=== PATIENT | female | born 1980 | race Two or more races ===

== ENCOUNTER 2016-10-24 11:18 | Inpatient (IN) | payer SELFPAY ==
[~2016-10-24] VITALS: Ht 170.2 cm; Wt 95.3 kg
--- NOTE | 2016-10-24 11:39 | PHYS DOC ---
Past Medical History Past Medical History: Migraines Past Surgical History: Other Additional Past Surgical Histo: D&C, CYST REMOVAL Alcohol Use: None Drug Use: None Adult General Chief Complaint Chief Complaint: SHORTNESS OF BREATH HPI HPI Patient is a 36 year old female who presents with with increased shortness of breath and nausea and vomiting. Patient states on she started having increased nausea and vomiting and cannot keep any food down. Patient denies any diarrhea or dysuria or abdominal pain. Patient states this morning she woke up with increasing shortness of breath and nausea and vomiting. Patient stated last night she had subjective fevers. Patient denies any chest pain. Patient has no other complaints. Pertinent exam findings: Heart was regular rate and rhythm without any murmurs Lungs are clear to auscultation bilaterally without crackles wheezes or rales Abdomen soft nontender bowel sounds are normal 4 quadrants ED course: Patient was seen and examined in the emergency room, CBC, CMP, lipase, UA, U , IV fluids, Zofran were ordered 1155: CXR NAD 1159: EKG is normal sinus rhythm rate of 63 no STEMI 1218: Repeat EKG shows normal sinus rhythm rate of 64 no STEMI, reason for the repeat was initial EKG the computer readout showing a flutter however on the repeat deftly no signs of a flutter 1230: Patient vomited the 1 g of Tylenol given by mouth therefore the patient was given 30 mg of Toradol IV 1335: On the monitor the patient is going in and out of a flutter repeat EKG shows normal sinus rhythm rate of 65 no STEMI however the rhythm strips printed before the EKG at 1327 show runs of a flutter 4:1 1345: Discussed CC/HP/PMH with Dr. Martines and recommends admit with cardiology on consult and she did not want to anticoagulate the patient at this time 1350: Explain the plan with the patient to admit for further evaluation and management Pertinent results: CBC unremarkable CMP unremarkable MDM: After reviewing the chart, CC/HPI/PMH, physical exam, [lab results], [ radiological results], the patient has paroxysmal A. fib flutter has been captured on the rhythm strip however all 3 EKGs show normal sinus rhythm. I believe the patient's intermittent a flutter is contributing to her shortness of breath and we'll make the patient for further evaluation and management with cardiology on consult. Review of Systems Review of Systems GEN: Denies fevers, chills, sweats HEENT: Denies blurred vision, sore throat CV: Denies chest pain RESP: Denies shortness of air, cough GI: pos n/v/ NEURO: Denies confusion, dizziness MSK: Denies weakness, joint pain/swelling Current Medications Current Medications Current Medications Medications (Trade) Dose Ordered Sig/Myla Start Time Stop Time Status Last Admin Dose Admin Acetaminophen (Tylenol) 1,000 mg 1X ONCE 10/24/16 12:15 10/24/16 12:16 DC 10/24/16 12:22 1,000 MG Fentanyl Citrate (Fentanyl 2ml Vial) 50 mcg 1X ONCE 10/24/16 13:30 10/24/16 13:31 DC 10/24/16 13:39 50 MCG Ketorolac Tromethamine (Toradol) 30 mg 1X ONCE 10/24/16 12:45 10/24/16 12:46 DC 10/24/16 12:41 30 MG Metoclopramide HCl (Reglan) 10 mg 1X ONCE 10/24/16 13:30 10/24/16 13:31 DC 10/24/16 13:23 10 MG Ondansetron HCl (Zofran) 4 mg 1X ONCE 10/24/16 11:45 10/24/16 11:46 DC 10/24/16 12:04 4 MG Sodium Chloride 1,000 ml @ 1,000 mls/hr 1X ONCE 10/24/16 11:45 10/24/16 12:44 DC 10/24/16 12:04 1,000 MLS/HR Allergies Allergies Allergies Coded Allergies Type Severity Reaction Last Updated Verified No Known Drug Allergies 08/14/13 No Physical Exam Physical Exam GEN.: No apparent distress. Alert and oriented. HEENT: Head is normocephalic, atraumatic NECK: Supple. LUNGS: CTAB. HEART: RRR, S1, S2 present. Peripheral pulses intact ABDOMEN: Soft, nontender. Positive bowel sounds. EXTREMITIES: Without any cyanosis. NEUROLOGIC: Normal speech, normal tone PSYCHIATRIC: Normal affect, normal mood. SKIN: No ulcerations Current Patient Data Vital Signs Vital Signs Date Time Temp Pulse Resp B/P (MAP) Pulse Ox O2 Delivery O2 Flow Rate FiO2 10/24/16 13:39 Room Air 10/24/16 13:27 80 136/83 (100) 100 10/24/16 12:57 23 10/24/16 11:30 98.2 98.2 Lab Values Laboratory Tests Test 10/24/16 10:42 10/24/16 11:25 10/24/16 12:20 POC Urine HCG, Qualitative Hcg negative (Negative) Urine Collection Type Void Urine Color Yellow Urine Clarity Cloudy Urine pH 6.0 Urine Specific [place] >=1.030 Urine Protein 30 mg/dL (NEG-TRACE) Urine Glucose (UA) Negative mg/dL (NEG) Urine Ketones (Stick) 40 mg/dL (NEG) Urine Blood Large (NEG) Urine Nitrite Negative (NEG) Urine Bilirubin Negative (NEG) Urine Urobilinogen Dipstick 0.2 mg/dL (0.2 mg/dL) Urine Leukocyte Esterase Trace (NEG) Urine RBC >40 /HPF (0-2) Urine WBC Occ /HPF (0-4) Urine Squamous Epithelial Cells Mod /LPF Urine Bacteria 0 /HPF (0-FEW) Urine Mucus Mod /LPF Urine Opiates Screen Neg (NEG) Urine Methadone Screen Neg (NEG) Urine Barbiturates Neg (NEG) Urine Phencyclidine Screen Neg (NEG) Urine Amphetamine/Methamphetamine Neg (NEG) Urine Benzodiazepines Screen Neg (NEG) Urine Cocaine Screen Neg (NEG) Urine Cannabinoids Screen Neg (NEG) Urine Ethyl Alcohol Neg (NEG) White Blood Count 10.7 x10^3/uL (4.0-11.0) Red Blood Count 3.79 x10^6/uL (3.50-5.40) Hemoglobin 12.0 g/dL (12.0-15.5) Hematocrit 34.8 % (36.0-47.0) L Mean Corpuscular Volume 92 fL (79-100) Mean Corpuscular Hemoglobin 32 pg (25-35) Mean Corpuscular Hemoglobin Concent 35 g/dL (31-37) Red Cell Distribution Width 14.8 % (11.5-14.5) H Platelet Count 353 x10^3/uL (140-400) Neutrophils (%) (Auto) 84 % (31-73) H Lymphocytes (%) (Auto) 11 % (24-48) L Monocytes (%) (Auto) 4 % (0-9) Eosinophils (%) (Auto) 0 % (0-3) Basophils (%) (Auto) 0 % (0-3) Neutrophils # (Auto) 9.0 x10^3uL (1.8-7.7) H Lymphocytes # (Auto) 1.2 x10^3/uL (1.0-4.8) Monocytes # (Auto) 0.4 x10^3/uL (0.0-1.1) Eosinophils # (Auto) 0.0 x10^3/uL (0.0-0.7) Basophils # (Auto) 0.0 x10^3/uL (0.0-0.2) Sodium Level 141 mmol/L (136-145) Potassium Level 3.5 mmol/L (3.5-5.1) Chloride Level 103 mmol/L (98-107) Carbon Dioxide Level 27 mmol/L (21-32) Anion Gap 11 (6-14) Blood Urea Nitrogen 15 mg/dL (7-20) Creatinine 0.9 mg/dL (0.6-1.0) Estimated GFR (Cockcroft-Gault) 71.7 BUN/Creatinine Ratio 17 (6-20) Glucose Level 124 mg/dL (70-99) H Calcium Level 8.9 mg/dL (8.5-10.1) Total Bilirubin 0.5 mg/dL (0.2-1.0) Aspartate Amino Transferase (AST) 14 U/L (15-37) L Alanine Aminotransferase (ALT) 13 U/L (14-59) L Alkaline Phosphatase 81 U/L (46-116) Total Protein 8.6 g/dL (6.4-8.2) H Albumin 4.2 g/dL (3.4-5.0) Albumin/Globulin Ratio 1.0 (1.0-1.7) Lipase 191 U/L (73-393) Laboratory Tests 10/24/16 12:20 Laboratory Tests 10/24/16 12:20 EKG EKG 1159: EKG is normal sinus rhythm rate of 63 no STEMI[] Radiology/Procedures Radiology/Procedures CRX: NAD[] Course & Med Decision Making Course & Med Decision Making Pertinent Labs and Imaging studies reviewed. (See chart for details) [] Dragon Disclaimer Dragon Disclaimer This electronic medical record was generated, in whole or in part, using a voice recognition dictation system. Departure Departure Impression: Primary Impression: Atrial flutter, paroxysmal Disposition: ADMITTED INPATIENT Admitting Physician: Other (Dr. Martines) Condition: STABLE Referrals: NO PCP (PCP) SOWMYA RUFFIN DO Oct 24, 2016 11:39
[2016-10-24 11:44] LABS: BILIRUBIN,URINE NEGATIVE (NEG); GLUCOSE,URINE NEGATIVE (NEG); NITRITE,URINE NEGATIVE (NEG); PROTEIN,URINE 30 mg/dL (NEG-TRACE); UROBILINOGEN,URINE 0.2 mg/dL (0.2 mg/dL)
[2016-10-24] MEDS ORDERED: ONDANSETRON PF 4 MG/2 ML VIAL. IV ONE (11:45)
[2016-10-24] MEDS ORDERED: IV NORMAL SALINE 1000ML BAG 1,000 ML IV ONE ×2 (11:45→18:15)
[2016-10-24 11:52] LABS: SQUAMOUS EPITHELIAL CELL,UR MOD /LPF
[2016-10-24 11:53] LABS: BACTERIA,URINE 0 /HPF (0-FEW); RBC,URINE >40 /HPF (0-2); WBC,URINE OCC /HPF (0-4)
[2016-10-24] MEDS ORDERED: ACETAMINOPHEN 500 MG TABLET PO ONE (12:15)
[2016-10-24 12:39] LABS: BASO % 0 % (0-3); EOS % 0 % (0-3); HEMATOCRIT 34.8 % (36.0-47.0); LYMPH # 1.2 x10^3/uL (1.0-4.8); LYMPH % 11 % (24-48); MEAN CORPUSCULAR HEMOGLOBIN 32 pg (25-35); MEAN CORPUSCULAR HGB CONC 35 g/dL (31-37); MEAN CORPUSCULAR VOLUME 92 fL (79-100); MONO % 4 % (0-9); NEUT % 84 % (31-73); PLATELET COUNT 353 x10^3/uL (140-400); RED BLOOD COUNT 3.79 x10^6/uL (3.50-5.40); RED CELL DISTRIBUTION WIDTH 14.8 % (11.5-14.5); WHITE BLOOD COUNT 10.7 x10^3/uL (4.0-11.0)
[2016-10-24] MEDS ORDERED: KETOROLAC TROMETHAMINE 30 MG/ML INJ. IV ONE (12:45)
[2016-10-24 12:48] LABS: CALCIUM 8.9 mg/dL (8.5-10.1); CREATININE 0.9 mg/dL (0.6-1.0); GFR 71.7; POTASSIUM 3.5 mmol/L (3.5-5.1)
[2016-10-24 12:54] LABS: ALBUMIN 4.2 g/dL (3.4-5.0); TOTAL BILIRUBIN 0.5 mg/dL (0.2-1.0); TOTAL PROTEIN 8.6 g/dL (6.4-8.2)
[2016-10-24] MEDS ORDERED: METOCLOPRAMIDE HCL 10 MG/2 ML VIAL. IV ONE (13:30)
[2016-10-24] MEDS ORDERED: fentaNYL PF VIAL 100 MCG/2 ML VIAL IV ONE (13:30)
[2016-10-24 13:45] LABS: BARBITURATES NEG (NEG); BENZODIAZEPINES NEG (NEG); CANNABINOIDS NEG (NEG); COCAINE NEG (NEG); METHADONE NEG (NEG); OPIATES NEG (NEG); PHENCYCLIDINE NEG (NEG)
[2016-10-24] MEDS ORDERED: MORPHINE SULFATE 4 MG/ML DISP.SYRIN. IV PRN (14:00)
[2016-10-24] MEDS ORDERED: ONDANSETRON PF 4 MG/2 ML VIAL. IV PRN (14:00)
[2016-10-24 14:55] VITALS: BP 133/78
[2016-10-24 15:01] VITALS: BP 132/73
[2016-10-24] MEDS ORDERED: ASPI1TAB30 PO (15:34)
[2016-10-24] MEDS ORDERED: IBUPROFEN 400 MG TABLET. PO PRN (18:00)
--- NOTE | 2016-10-24 18:17 | PDOC1 ---
History and Physical Date of Admission Date of Admission DATE: 10/24/16 TIME: 17:57 Identification/Chief Complaint Chief Complaint N/V/myalgias PAfib/flutter Problems: History of Present Illness History of Present Illness Mrs Peguero is a 36 y/o woman who presented with nausea/vomiting/ diarrhea and myalgias that started yesterday. Her GI symptoms have largely resolved, but myalgias/arthralgias are persistent. She denies chills, but endorses subjective fever last night. Has a mild headache, which is not unusual for her, takes Excedrin at home. This morning, she awoke with chest heaviness and difficulty breathing and she decided to present to the ER. Ther, initial EKG was normal, but a brief episode of afib/flutter was captured on tele. She is therefore admitted for cardiac evaluation to the [facility] Past Medical History Past Medical History denies any medical issues Past Surgical History Past Surgical History: No pertinent history Family History Family History DM. CAD in maternal grandmother Social History Smoke: No ALCOHOL: occassional Drugs: None Current Problem List Problem List Problems Medical Problems: (1) Atrial flutter, paroxysmal Status: Acute Problems: Current Medications Current Medications Current Medications Sodium Chloride 1,000 ml @ 1,000 mls/hr 1X ONCE IV Last administered on 12:04; Start 10/24/16 at 11:45; Stop 10/24/16 at 12:44; Status DC Ondansetron HCl (Zofran) 4 mg 1X ONCE IV Last administered on 10/24/16 12:04; Start 10/24/16 at 11:45; Stop 10/24/16 at 11:46; Status DC Acetaminophen (Tylenol) 1,000 mg 1X ONCE PO Last administered on 10/24/16 12: 22; Start 10/24/16 at 12:15; Stop 10/24/16 at 12:16; Status DC Ketorolac Tromethamine (Toradol) 30 mg 1X ONCE IV Last administered on 12:41; Start 10/24/16 at 12:45; Stop 10/24/16 at 12:46; Status DC Metoclopramide HCl (Reglan) 10 mg 1X ONCE IV Last administered on 10/24/16 13: 23; Start 10/24/16 at 13:30; Stop 10/24/16 at 13:31; Status DC Fentanyl Citrate (Fentanyl 2ml Vial) 50 mcg 1X ONCE IV Last administered on 13:39; Start 10/24/16 at 13:30; Stop 10/24/16 at 13:31; Status DC Ondansetron HCl (Zofran) 4 mg PRN Q8HRS PRN IV NAUSEA/VOMITING; Start 10/24/16 at 14:00; Stop 10/25/16 at 13:59 Morphine Sulfate 4 mg PRN Q2HR PRN IV PAIN Last administered on 10/24/16 16:17 ; Start 10/24/16 at 14:00; Stop 10/24/16 at 17:54; Status DC Oxycodone/ Acetaminophen (Percocet 5/325) 1 tab PRN Q4HRS PRN PO PAIN; Start at 18:00; Status UNV Active Scripts Active Reported Excedrin Migraine Caplet (Aspirin/Acetaminophen/Caffeine) 1 Each Tablet 1 Each PO PRN PRN Allergies Allergies: Coded Allergies: No Known Drug Allergies (Unverified , 08/14/13) ROS Review of System positive as per HPI. She denies any problems in rest of ROS Physical Exam General: Alert, Oriented X3, Cooperative, No acute distress HEENT: Atraumatic, EOMI, Mucous membr. moist/pink Heart: RRR, no murmurs Abdomen: Normal bowel sounds, Soft, No tenderness, Other (obese) Extremities: No clubbing, No cyanosis, No edema Neuro: Normal speech, Normal tone Psych/Mental Status: Mental status NL Vitals Vitals Vital Signs Date Time Temp Pulse Resp B/P (MAP) Pulse Ox O2 Delivery O2 Flow Rate FiO2 10/24/16 17:10 96 Room Air 10/24/16 14:55 97.7 75 20 133/78 (96) 97.7 Labs Labs Laboratory Tests Test 10/24/16 10:42 10/24/16 11:25 10/24/16 12:20 Bedside Urine HCG, Qualitative Hcg negative (Negative) Urine Collection Type Void Urine Color Yellow Urine Clarity Cloudy Urine pH 6.0 Urine Specific [place] >=1.030 Urine Protein 30 mg/dL (NEG-TRACE) Urine Glucose (UA) Negative mg/dL (NEG) Urine Ketones (Stick) 40 mg/dL (NEG) Urine Blood Large (NEG) Urine Nitrite Negative (NEG) Urine Bilirubin Negative (NEG) Urine Urobilinogen Dipstick 0.2 mg/dL (0.2 mg/dL) Urine Leukocyte Esterase Trace (NEG) Urine RBC >40 /HPF (0-2) Urine WBC Occ /HPF (0-4) Urine Squamous Epithelial Cells Mod /LPF Urine Bacteria 0 /HPF (0-FEW) Urine Mucus Mod /LPF Urine Opiates Screen Neg (NEG) Urine Methadone Screen Neg (NEG) Urine Barbiturates Neg (NEG) Urine Phencyclidine Screen Neg (NEG) Urine Amphetamine/Methamphetamine Neg (NEG) Urine Benzodiazepines Screen Neg (NEG) Urine Cocaine Screen Neg (NEG) Urine Cannabinoids Screen Neg (NEG) Urine Ethyl Alcohol Neg (NEG) White Blood Count 10.7 x10^3/uL (4.0-11.0) Red Blood Count 3.79 x10^6/uL (3.50-5.40) Hemoglobin 12.0 g/dL (12.0-15.5) Hematocrit 34.8 % (36.0-47.0) Mean Corpuscular Volume 92 fL (79-100) Mean Corpuscular Hemoglobin 32 pg (25-35) Mean Corpuscular Hemoglobin Concent 35 g/dL (31-37) Red Cell Distribution Width 14.8 % (11.5-14.5) Platelet Count 353 x10^3/uL (140-400) Neutrophils (%) (Auto) 84 % (31-73) Lymphocytes (%) (Auto) 11 % (24-48) Monocytes (%) (Auto) 4 % (0-9) Eosinophils (%) (Auto) 0 % (0-3) Basophils (%) (Auto) 0 % (0-3) Neutrophils # (Auto) 9.0 x10^3uL (1.8-7.7) Lymphocytes # (Auto) 1.2 x10^3/uL (1.0-4.8) Monocytes # (Auto) 0.4 x10^3/uL (0.0-1.1) Eosinophils # (Auto) 0.0 x10^3/uL (0.0-0.7) Basophils # (Auto) 0.0 x10^3/uL (0.0-0.2) Sodium Level 141 mmol/L (136-145) Potassium Level 3.5 mmol/L (3.5-5.1) Chloride Level 103 mmol/L (98-107) Carbon Dioxide Level 27 mmol/L (21-32) Anion Gap 11 (6-14) Blood Urea Nitrogen 15 mg/dL (7-20) Creatinine 0.9 mg/dL (0.6-1.0) Estimated GFR (Cockcroft-Gault) 71.7 BUN/Creatinine Ratio 17 (6-20) Glucose Level 124 mg/dL (70-99) Calcium Level 8.9 mg/dL (8.5-10.1) Total Bilirubin 0.5 mg/dL (0.2-1.0) Aspartate Amino Transf (AST/SGOT) 14 U/L (15-37) Alanine Aminotransferase (ALT/SGPT) 13 U/L (14-59) Alkaline Phosphatase 81 U/L (46-116) Troponin I Quantitative < 0.017 ng/mL (0.000-0.055) Total Protein 8.6 g/dL (6.4-8.2) Albumin 4.2 g/dL (3.4-5.0) Albumin/Globulin Ratio 1.0 (1.0-1.7) Lipase 191 U/L (73-393) Laboratory Tests Test 10/24/16 10:42 10/24/16 11:25 10/24/16 12:20 Bedside Urine HCG, Qualitative Hcg negative (Negative) Urine Collection Type Void Urine Color Yellow Urine Clarity Cloudy Urine pH 6.0 Urine Specific [place] >=1.030 Urine Protein 30 mg/dL (NEG-TRACE) Urine Glucose (UA) Negative mg/dL (NEG) Urine Ketones (Stick) 40 mg/dL (NEG) Urine Blood Large (NEG) Urine Nitrite Negative (NEG) Urine Bilirubin Negative (NEG) Urine Urobilinogen Dipstick 0.2 mg/dL (0.2 mg/dL) Urine Leukocyte Esterase Trace (NEG) Urine RBC >40 /HPF (0-2) Urine WBC Occ /HPF (0-4) Urine Squamous Epithelial Cells Mod /LPF Urine Bacteria 0 /HPF (0-FEW) Urine Mucus Mod /LPF Urine Opiates Screen Neg (NEG) Urine Methadone Screen Neg (NEG) Urine Barbiturates Neg (NEG) Urine Phencyclidine Screen Neg (NEG) Urine Amphetamine/Methamphetamine Neg (NEG) Urine Benzodiazepines Screen Neg (NEG) Urine Cocaine Screen Neg (NEG) Urine Cannabinoids Screen Neg (NEG) Urine Ethyl Alcohol Neg (NEG) White Blood Count 10.7 x10^3/uL (4.0-11.0) Red Blood Count 3.79 x10^6/uL (3.50-5.40) Hemoglobin 12.0 g/dL (12.0-15.5) Hematocrit 34.8 % (36.0-47.0) Mean Corpuscular Volume 92 fL (79-100) Mean Corpuscular Hemoglobin 32 pg (25-35) Mean Corpuscular Hemoglobin Concent 35 g/dL (31-37) Red Cell Distribution Width 14.8 % (11.5-14.5) Platelet Count 353 x10^3/uL (140-400) Neutrophils (%) (Auto) 84 % (31-73) Lymphocytes (%) (Auto) 11 % (24-48) Monocytes (%) (Auto) 4 % (0-9) Eosinophils (%) (Auto) 0 % (0-3) Basophils (%) (Auto) 0 % (0-3) Neutrophils # (Auto) 9.0 x10^3uL (1.8-7.7) Lymphocytes # (Auto) 1.2 x10^3/uL (1.0-4.8) Monocytes # (Auto) 0.4 x10^3/uL (0.0-1.1) Eosinophils # (Auto) 0.0 x10^3/uL (0.0-0.7) Basophils # (Auto) 0.0 x10^3/uL (0.0-0.2) Sodium Level 141 mmol/L (136-145) Potassium Level 3.5 mmol/L (3.5-5.1) Chloride Level 103 mmol/L (98-107) Carbon Dioxide Level 27 mmol/L (21-32) Anion Gap 11 (6-14) Blood Urea Nitrogen 15 mg/dL (7-20) Creatinine 0.9 mg/dL (0.6-1.0) Estimated GFR (Cockcroft-Gault) 71.7 BUN/Creatinine Ratio 17 (6-20) Glucose Level 124 mg/dL (70-99) Calcium Level 8.9 mg/dL (8.5-10.1) Total Bilirubin 0.5 mg/dL (0.2-1.0) Aspartate Amino Transf (AST/SGOT) 14 U/L (15-37) Alanine Aminotransferase (ALT/SGPT) 13 U/L (14-59) Alkaline Phosphatase 81 U/L (46-116) Troponin I Quantitative < 0.017 ng/mL (0.000-0.055) Total Protein 8.6 g/dL (6.4-8.2) Albumin 4.2 g/dL (3.4-5.0) Albumin/Globulin Ratio 1.0 (1.0-1.7) Lipase 191 U/L (73-393) VTE Prophylaxis Ordered VTE Prophylaxis Devices: No VTE Pharmacological Prophylaxi: Yes Assessment/Plan Assessment/Plan Mrs Peguero is 36 y/o woman without medical problems, who presented with what appears to be viral syndrome and paroxysmal Afib/Aflutter. She is currently in NSR and is asymptomatic from cardiorespiratory standpoint. cardiology has been consulted. Obtain serial enzymes, tele to rule out ACS. With N/V and diarrhea, suspect she has significant dehydration. Symptoms acutally have much abated already. will administer another bolus NS, then start maintenance fluid with potassium. Monitor BMP. She has antiemeticas IV available PRN. For arthralgias/myalgias, IV morphine 4mg q2h is quite inappropriate. discussed with her that NSAIDs are the best choice. she can alternate, while in the hospital, with percocet if needed For prophylaxis, she will be started on H2 gonzalo and lovenox. SOLO CONDON MD Oct 24, 2016 18:17
[2016-10-24 19:06] VITALS: BP 137/90
[2016-10-24] MEDS: oxyCODONE/APAP 5/325 1 TAB TABLET PO PRN ×2 (19:14→23:08)
[2016-10-24] MEDS: POTASSIUM CHLORIDE 30 MEQ in IV 1/2 NORMAL SALINE 1,000 ML IV SCH (21:06)
[2016-10-24 23:08] VITALS: BP 113/70
--- NOTE | 2016-10-25 02:56 | ACF ---
Admission Forms Criteria CARDIAC ARRHYTHMIA Clinical Indications for Inpatient Care (Place 'X' for any and all applicable criteria): Ongoing inpatient care for cardiac arrhythmia needed as indicated by ANY ONE of the following(1)(2)(3)(4)(7) : [X]I. Vital sign abnormality secondary to arrhythmia [ ]II. Patient has implantable cardioverter-defibrillator that has fired more than once within past 24 hours or needs immediate adjustment of settings that cannot be done other than in inpatient setting. [ ]III. Altered mental status [ ]IV. Resuscitated or aborted ventricular fibrillation or ventricular tachycardia in patient without implantable cardioverter- defibrillator [ ]V. Initiation of antiarrhythmic drug therapy is needed in patient at high risk of adverse effects as indicated by ANY ONE of the following: [ ]a) Significant structural heart disease (e.g., reduced ejection fraction, congenital heart disease, valvular heart disease) [ ]b) Prolonged QT interval [ ]c) Underlying sinus node or atrioventricular conduction disturbances [ ]d) Need for treatment with antiarrhythmic drugs that have significant proarrhythmic potential (e.g., dofetilide, sotalol, procainamide) [ ]. Acute myocardial ischemia as a consequence or suspected cause of arrhythmia [ ]VII. Syncope secondary to arrhythmia [ ]VIII. Heart failure (eg, pulmonary edema) secondary to arrhythmia) (26)(27) [ ]IX. Patient has implantable cardioverter defibrillator that has fired more than once within past 24hr or needs immediate adjustment of settings that cannot be done other than in inpatient setting.(8) [ ]X. Sustained (30 seconds or more of ventricular rhythm at more than 100 beats per minute) ventricular tachycardia and ANY ONE of the following: [ ]a) No previous known history of sustained ventricular tachycardia [ ]b) Structural heart disease (eg, reduced ejection fraction, hypertrophic cardiomyopathy, severe valvular disease) and without implantable cardioverter-defibrillator(24)(32)(33) [ ]c) Need for treatment of drug toxicity (eg, digitalis toxicity)(34 ) [ ]d) Need for electrical cardioversion Extended stay beyond goal length of stay may be needed for [ ]a) Hemodynamic stability [ ]b) Arrhythmia evaluation completed [ ]c) Reversible causes of arrhythmia eliminated or mitigated [ ]d) Specific antiarrhythmia treatment initiated as appropriate [ ]e) Anticoagulation requirements addressed (or anticoagulation not required). [ ]f) Medical comorbidities manageable at lower level of care The original [facility] content [facility] by [facility] has been revised. The portions of the content which have been revised are identified through the use of italic text or in bold, and [facility] has neither reviewed nor approved the modified material. All other unmodified content is copyright [facility]. Please see references footnoted in the original [facility] edition 2016 Admission Criteria Met?: Yes ORLY TAPIA Oct 25, 2016 02:55
[2016-10-25 03:16] VITALS: BP 132/57
[2016-10-25] MEDS: oxyCODONE/APAP 5/325 1 TAB TABLET PO PRN ×2 (03:16→08:29)
[2016-10-25 05:57] LABS: BASO # 0.1 x10^3/uL (0.0-0.2); BASO % 0 % (0-3); EOS % 0 % (0-3); HEMATOCRIT 30.8 % (36.0-47.0); HEMOGLOBIN 10.4 g/dL (12.0-15.5); LYMPH # 2.1 x10^3/uL (1.0-4.8); LYMPH % 12 % (24-48); MEAN CORPUSCULAR HEMOGLOBIN 31 pg (25-35); MEAN CORPUSCULAR HGB CONC 34 g/dL (31-37); MEAN CORPUSCULAR VOLUME 93 fL (79-100); MONO % 5 % (0-9); NEUT % 83 % (31-73); PLATELET COUNT 325 x10^3/uL (140-400); RED BLOOD COUNT 3.31 x10^6/uL (3.50-5.40); RED CELL DISTRIBUTION WIDTH 14.7 % (11.5-14.5); WHITE BLOOD COUNT 18.2 x10^3/uL (4.0-11.0)
[2016-10-25 06:05] LABS: CALCIUM 8.1 mg/dL (8.5-10.1); CREATININE 0.9 mg/dL (0.6-1.0); GFR 71.7
[2016-10-25 06:06] LABS: POTASSIUM 2.9 mmol/L (3.5-5.1)
[2016-10-25] MEDS ORDERED: POTASSIUM CHLORIDE 20 MEQ TABLET.ER. PO ONE ×3 (06:30→12:00)
[2016-10-25 07:00] VITALS: BP 116/93
--- NOTE | 2016-10-25 08:15 | RAD ---
Chest, 2 views, 10/24/2016: History: Shortness of breath Comparison is made to a study from 09/02/2010. The heart size and pulmonary vascularity are normal. There is a calcified lymph node in the right paratracheal region. No pulmonary infiltrates are seen. There is no evidence of pleural fluid. IMPRESSION: No acute cardiopulmonary abnormality is detected.
--- NOTE | 2016-10-25 08:25 | EKG ---
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
--- NOTE | 2016-10-25 08:26 | EKG ---
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
--- NOTE | 2016-10-25 08:26 | EKG ---
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
[2016-10-25] MEDS: POTASSIUM CHLORIDE 30 MEQ in IV 1/2 NORMAL SALINE 1,000 ML IV SCH (08:28)
[2016-10-25 09:43] LABS: PLT ESTIMATE ADEQUATE (ADEQUATE)
[2016-10-25 11:00] VITALS: BP 104/75
--- NOTE | 2016-10-25 13:31 | PDOC2 ---
CONSULT Date of Consult Date of Consult DATE: 10/25/16 TIME: 13:26 Reason for Consult Reason for Consult: parox. atrial flutter- Referring Physician Referring Physician: Dr. Martines Identification/Chief Complaint Chief Complaint nausea and vomiting Problems: Source Source: Patient History of Present Illness Reason for Visit: The patient is a 36-year-old female who was admitted last evening due to episodes of shortness of breath as well as nausea and vomiting. Patient has been treated with antiemetics and fluids overnight and is feeling much better. She denies any chest pain or lightheadedness. Her monitor overnight and is shown a sinus rhythm but she did have brief episodes of paroxysmal atrial flutter on monitoring in the emergency room. Chest x-ray is clear. Troponin is negative 3. Potassium was significantly decreased on admission at 2.9 but now has been replaced to 4.2. Past Medical History Cardiovascular: HTN GI: GERD Past Surgical History Past Surgical History: No pertinent history Family History Family History: Hypertension Social History No ALCOHOL: occassional Drugs: None Current Problem List Problem List Problems Medical Problems: (1) Atrial flutter, paroxysmal Status: Acute Current Medications Current Medications Current Medications Sodium Chloride 1,000 ml @ 1,000 mls/hr 1X ONCE IV Last administered on 12:04; Start 10/24/16 at 11:45; Stop 10/24/16 at 12:44; Status DC Ondansetron HCl (Zofran) 4 mg 1X ONCE IV Last administered on 10/24/16 12:04; Start 10/24/16 at 11:45; Stop 10/24/16 at 11:46; Status DC Acetaminophen (Tylenol) 1,000 mg 1X ONCE PO Last administered on 10/24/16 12: 22; Start 10/24/16 at 12:15; Stop 10/24/16 at 12:16; Status DC Ketorolac Tromethamine (Toradol) 30 mg 1X ONCE IV Last administered on 12:41; Start 10/24/16 at 12:45; Stop 10/24/16 at 12:46; Status DC Metoclopramide HCl (Reglan) 10 mg 1X ONCE IV Last administered on 10/24/16 13: 23; Start 10/24/16 at 13:30; Stop 10/24/16 at 13:31; Status DC Fentanyl Citrate (Fentanyl 2ml Vial) 50 mcg 1X ONCE IV Last administered on 13:39; Start 10/24/16 at 13:30; Stop 10/24/16 at 13:31; Status DC Ondansetron HCl (Zofran) 4 mg PRN Q8HRS PRN IV NAUSEA/VOMITING; Start 10/24/16 at 14:00; Stop 10/25/16 at 13:59 Morphine Sulfate 4 mg PRN Q2HR PRN IV PAIN Last administered on 10/24/16 16:17 ; Start 10/24/16 at 14:00; Stop 10/24/16 at 17:54; Status DC Oxycodone/ Acetaminophen (Percocet 5/325) 1 tab PRN Q4HRS PRN PO PAIN Last administered on 10/25/16 08:29; Start 10/24/16 at 18:00 Ibuprofen (Motrin) 400 mg PRN Q6HRS PRN PO INFLAMMATION Last administered on 21:12; Start 10/24/16 at 18:00 Sodium Chloride 1,000 ml @ 1,000 mls/hr 1X ONCE IV Last administered on 19:14; Start 10/24/16 at 18:15; Stop 10/24/16 at 19:14; Status DC Potassium Chloride 30 meq/ Sodium Chloride 1,015 ml @ 75 mls/hr [id number] IV Last administered on 10/25/16 08:28; Start 10/24/16 at 19:00 Potassium Chloride (Klor-Con) 40 meq 1X ONCE PO Last administered on 10/25/16 06:34; Start 10/25/16 at 06:30; Stop 10/25/16 at 06:31; Status DC Potassium Chloride (Klor-Con) 40 meq 1X ONCE PO Last administered on 10/25/16 08:28; Start 10/25/16 at 08:00; Stop 10/25/16 at 08:01; Status DC Potassium Chloride (Klor-Con) 40 meq 1X ONCE PO ; Start 10/25/16 at 12:00; Stop 10/25/16 at 12:01; Status DC Active Scripts Active Reported Excedrin Migraine Caplet (Aspirin/Acetaminophen/Caffeine) 1 Each Tablet 1 Each PO PRN PRN Allergies Allergies: Coded Allergies: No Known Drug Allergies (Unverified , 08/14/13) ROS General: YES: Fatigue Gastrointestinal: Yes Nausea, Yes Vomiting Neurological: Yes Headaches Physical Exam General: No acute distress HEENT: Atraumatic Lungs: Clear to auscultation Heart: Regular rate Abdomen: Normal bowel sounds Extremities: No clubbing Vitals VITALS Vital Signs Date Time Temp Pulse Resp B/P (MAP) Pulse Ox O2 Delivery O2 Flow Rate FiO2 10/25/16 11:00 98.4 58 18 104/75 (85) 98 Room Air 98.4 Labs Labs Laboratory Tests Test 10/24/16 10:42 10/24/16 11:25 10/24/16 12:20 10/24/16 20:00 Bedside Urine HCG, Qualitative Hcg negative (Negative) Urine Collection Type Void Urine Color Yellow Urine Clarity Cloudy Urine pH 6.0 Urine Specific [place] >=1.030 Urine Protein 30 mg/dL (NEG-TRACE) Urine Glucose (UA) Negative mg/dL (NEG) Urine Ketones (Stick) 40 mg/dL (NEG) Urine Blood Large (NEG) Urine Nitrite Negative (NEG) Urine Bilirubin Negative (NEG) Urine Urobilinogen Dipstick 0.2 mg/dL (0.2 mg/dL) Urine Leukocyte Esterase Trace (NEG) Urine RBC >40 /HPF (0-2) Urine WBC Occ /HPF (0-4) Urine Squamous Epithelial Cells Mod /LPF Urine Bacteria 0 /HPF (0-FEW) Urine Mucus Mod /LPF Urine Opiates Screen Neg (NEG) Urine Methadone Screen Neg (NEG) Urine Barbiturates Neg (NEG) Urine Phencyclidine Screen Neg (NEG) Urine Amphetamine/Methamphetamine Neg (NEG) Urine Benzodiazepines Screen Neg (NEG) Urine Cocaine Screen Neg (NEG) Urine Cannabinoids Screen Neg (NEG) Urine Ethyl Alcohol Neg (NEG) White Blood Count 10.7 x10^3/uL (4.0-11.0) Red Blood Count 3.79 x10^6/uL (3.50-5.40) Hemoglobin 12.0 g/dL (12.0-15.5) Hematocrit 34.8 % (36.0-47.0) Mean Corpuscular Volume 92 fL (79-100) Mean Corpuscular Hemoglobin 32 pg (25-35) Mean Corpuscular Hemoglobin Concent 35 g/dL (31-37) Red Cell Distribution Width 14.8 % (11.5-14.5) Platelet Count 353 x10^3/uL (140-400) Neutrophils (%) (Auto) 84 % (31-73) Lymphocytes (%) (Auto) 11 % (24-48) Monocytes (%) (Auto) 4 % (0-9) Eosinophils (%) (Auto) 0 % (0-3) Basophils (%) (Auto) 0 % (0-3) Neutrophils # (Auto) 9.0 x10^3uL (1.8-7.7) Lymphocytes # (Auto) 1.2 x10^3/uL (1.0-4.8) Monocytes # (Auto) 0.4 x10^3/uL (0.0-1.1) Eosinophils # (Auto) 0.0 x10^3/uL (0.0-0.7) Basophils # (Auto) 0.0 x10^3/uL (0.0-0.2) Sodium Level 141 mmol/L (136-145) Potassium Level 3.5 mmol/L (3.5-5.1) Chloride Level 103 mmol/L (98-107) Carbon Dioxide Level 27 mmol/L (21-32) Anion Gap 11 (6-14) Blood Urea Nitrogen 15 mg/dL (7-20) Creatinine 0.9 mg/dL (0.6-1.0) Estimated GFR (Cockcroft-Gault) 71.7 BUN/Creatinine Ratio 17 (6-20) Glucose Level 124 mg/dL (70-99) Calcium Level 8.9 mg/dL (8.5-10.1) Total Bilirubin 0.5 mg/dL (0.2-1.0) Aspartate Amino Transf (AST/SGOT) 14 U/L (15-37) Alanine Aminotransferase (ALT/SGPT) 13 U/L (14-59) Alkaline Phosphatase 81 U/L (46-116) Troponin I Quantitative < 0.017 ng/mL (0.000-0.055) < 0.017 ng/mL (0.000-0.055) Total Protein 8.6 g/dL (6.4-8.2) Albumin 4.2 g/dL (3.4-5.0) Albumin/Globulin Ratio 1.0 (1.0-1.7) Lipase 191 U/L (73-393) Test 10/25/16 02:22 10/25/16 12:55 White Blood Count 18.2 x10^3/uL (4.0-11.0) Red Blood Count 3.31 x10^6/uL (3.50-5.40) Hemoglobin 10.4 g/dL (12.0-15.5) Hematocrit 30.8 % (36.0-47.0) Mean Corpuscular Volume 93 fL (79-100) Mean Corpuscular Hemoglobin 31 pg (25-35) Mean Corpuscular Hemoglobin Concent 34 g/dL (31-37) Red Cell Distribution Width 14.7 % (11.5-14.5) Platelet Count 325 x10^3/uL (140-400) Neutrophils (%) (Auto) 83 % (31-73) Lymphocytes (%) (Auto) 12 % (24-48) Monocytes (%) (Auto) 5 % (0-9) Eosinophils (%) (Auto) 0 % (0-3) Basophils (%) (Auto) 0 % (0-3) Neutrophils # (Auto) 15.1 x10^3uL (1.8-7.7) Lymphocytes # (Auto) 2.1 x10^3/uL (1.0-4.8) Monocytes # (Auto) 1.0 x10^3/uL (0.0-1.1) Eosinophils # (Auto) 0.0 x10^3/uL (0.0-0.7) Basophils # (Auto) 0.1 x10^3/uL (0.0-0.2) Segmented Neutrophils % 80 % (35-66) Band Neutrophils % 3 % (0-9) Lymphocytes % 12 % (24-48) Monocytes % 5 % (0-10) Platelet Estimate Adequate (ADEQUATE) Sodium Level 142 mmol/L (136-145) Potassium Level 2.9 mmol/L (3.5-5.1) 4.2 mmol/L (3.5-5.1) Chloride Level 105 mmol/L (98-107) Carbon Dioxide Level 21 mmol/L (21-32) Anion Gap 16 (6-14) Blood Urea Nitrogen 14 mg/dL (7-20) Creatinine 0.9 mg/dL (0.6-1.0) Estimated GFR (Cockcroft-Gault) 71.7 Glucose Level 90 mg/dL (70-99) Calcium Level 8.1 mg/dL (8.5-10.1) Troponin I Quantitative < 0.017 ng/mL (0.000-0.055) Laboratory Tests Test 10/24/16 20:00 10/25/16 02:22 10/25/16 12:55 Troponin I Quantitative < 0.017 ng/mL (0.000-0.055) < 0.017 ng/mL (0.000-0.055) White Blood Count 18.2 x10^3/uL (4.0-11.0) Red Blood Count 3.31 x10^6/uL (3.50-5.40) Hemoglobin 10.4 g/dL (12.0-15.5) Hematocrit 30.8 % (36.0-47.0) Mean Corpuscular Volume 93 fL (79-100) Mean Corpuscular Hemoglobin 31 pg (25-35) Mean Corpuscular Hemoglobin Concent 34 g/dL (31-37) Red Cell Distribution Width 14.7 % (11.5-14.5) Platelet Count 325 x10^3/uL (140-400) Neutrophils (%) (Auto) 83 % (31-73) Lymphocytes (%) (Auto) 12 % (24-48) Monocytes (%) (Auto) 5 % (0-9) Eosinophils (%) (Auto) 0 % (0-3) Basophils (%) (Auto) 0 % (0-3) Neutrophils # (Auto) 15.1 x10^3uL (1.8-7.7) Lymphocytes # (Auto) 2.1 x10^3/uL (1.0-4.8) Monocytes # (Auto) 1.0 x10^3/uL (0.0-1.1) Eosinophils # (Auto) 0.0 x10^3/uL (0.0-0.7) Basophils # (Auto) 0.1 x10^3/uL (0.0-0.2) Segmented Neutrophils % 80 % (35-66) Band Neutrophils % 3 % (0-9) Lymphocytes % 12 % (24-48) Monocytes % 5 % (0-10) Platelet Estimate Adequate (ADEQUATE) Sodium Level 142 mmol/L (136-145) Potassium Level 2.9 mmol/L (3.5-5.1) 4.2 mmol/L (3.5-5.1) Chloride Level 105 mmol/L (98-107) Carbon Dioxide Level 21 mmol/L (21-32) Anion Gap 16 (6-14) Blood Urea Nitrogen 14 mg/dL (7-20) Creatinine 0.9 mg/dL (0.6-1.0) Estimated GFR (Cockcroft-Gault) 71.7 Glucose Level 90 mg/dL (70-99) Calcium Level 8.1 mg/dL (8.5-10.1) Images Images Chest x-ray shows no acute changes. Assessment/Plan Assessment/Plan 1. Brief episodes of paroxysmal atrial flutter. Rhythm stable overnight. Initial potassium level decreased at 2.9 at now has been replaced to 4.2. Chest x-ray shows no changes. Troponin has been normal 3. No ischemic changes on EKG. We'll continue to monitor increase activities. We'll check an echocardiogram today. Possibly home later today from a cardiac viewpoint. 2. Nausea and vomiting. Resolved. Patient feeling significantly better. 3. Headaches. These have also resolved. Thank you for allowing us to participate in the care of your patient. SIN NEFF MD Oct 25, 2016 13:31
[2016-10-25] MEDS ORDERED: MORP10SO PO (13:45)
[2016-10-25] MEDS ORDERED: IBUP-1027 PO (13:45)
[2016-10-25] MEDS ORDERED: MORPHINE SULFATE 10 MG/5 ML ORAL SOLUTION. PO PRN (13:45)
--- NOTE | 2016-10-25 14:00 | PDOC3 ---
Discharge Summary* Date of Admission: Oct 24, 2016 Date of Discharge: Oct 25, 2016 Admitting Diagnosis viral syndrome paroxysmal aflutter Problems: Final Diagnosis viral syndrome, paroxysmal aflutter CONSULTS cardiology Brief Hospital Course Mrs Peguero is a 36 y/o woman who presented with nausea/vomiting/ diarrhea and myalgias that started yesterday. Her GI symptoms have largely resolved, but myalgias/arthralgias are persistent. She denies chills, but endorses subjective fever last night. Has a mild headache, which is not unusual for her, takes Excedrin at home. This morning, she awoke with chest heaviness and difficulty breathing and she decided to present to the ER. Ther, initial EKG was normal, but a brief episode of afib/flutter was captured on tele. She is therefore admitted for cardiac evaluation to the [facility]. For the next 36 hours, she was observed on tele w/o recurrence of her arrhythmia. Cardiology consult was obtained, and she was deemed stable for discharge after echocardiogram. She was treated for hypokalemia with normalization of her potassium. HTe GI symptoms did not recur, although she had mild persistent anorexia. Her main complaint was myalgias and arthralgias, which were attributed to the viral syndrome. she received motrin and narcotics , initially IV, later PO. because she felt morphine worked better for her, she was discharged with small dose of morphine elixir. Disposition/Orders: D/C to Home CONDITION AT DISCHARGE: Improved Diet: Regular Scheduled PRN Aspirin/Acetaminophen/Caffeine (Excedrin Migraine Caplet), 1 EACH PO PRN PRN for MIGRAINE HEADACHE, (Reported) Ibuprofen (Ibuprofen), 400 MG PO PRN Q6HRS PRN for INFLAMMATION Morphine Sulfate (Morphine Sulfate), 5 MG PO PRN Q6HRS PRN for PAIN FOLLOW UP APPOINTMENT: PCP in 1 week Time Spent Total time spent with patient: 25 minutes for coordination of care, counseling , and education. SOLO CONDON MD Oct 25, 2016 14:00
--- NOTE | 2016-10-25 15:28 | CARD ---
APPROVED REPORT EXAM: Two-dimensional and M-mode echocardiogram with Doppler and color Doppler. Other Information Quality : GoodHR: 60bpm Rhythm : NSR INDICATION PAROXYSMAL ATRIAL FLUTTER 2D DIMENSIONS RVDd2.6 (2.9-3.5cm)Left Atrium(2D)3.4 (1.6-4.0cm) IVSd1.0 (0.7-1.1cm)Aortic Root(2D)2.8 (2.0-3.7cm) LVDd4.9 (3.9-5.9cm)LVOT Diameter2.3 (1.8-2.4cm) PWd0.9 (0.7-1.1cm)LVDs3.4 (2.5-4.0cm) FS (%) 30.2 %SV63.8 ml LVEF(%)57.4 (>50%) Aortic Valve AoV Peak Charlie.132.7cm/sAoV VTI29.8cm AO Peak GR.7.0mmHgLVOT Peak Charlie.112.8cm/s AO Mean GR.4mmHgAVA (VMAX)3.40cm2 Mitral Valve MV E Aiekourv167.9cm/sMV E Peak Gr.5mmHg MV DECEL [id number] A Reicwsrx052.8cm/s MV E Mean Gr.2mmHgE/A Ratio1.1 MV A [id number] Pulmonary Valve PV Peak Pqxbaaxd22.9cm/s Pulmonary Vein S1 Iefxgccq59.0cm/sD2 Xbfhadwl67.4cm/s PVa [id number] LEFT VENTRICLE The left ventricle is normal size. There is normal left ventricular wall thickness. The left ventricu lar systolic function is normal and the ejection fraction is within normal range. The Ejection Fracti on is 55-60%. There is normal LV segmental wall motion. The left ventricular diastolic function and f illing is normal for age. RIGHT VENTRICLE The right ventricle is normal size. There is normal right ventricular wall thickness. The right ventr icular systolic function is normal. ATRIA The left atrium size is normal. The right atrium size is normal. The interatrial septum is intact wit h no evidence for an atrial septal defect or patent foramen ovale as noted on 2-D or Doppler imaging. AORTIC VALVE The aortic valve is normal in structure and function. The aortic valve is trileaflet. Doppler and Col or Flow revealed no significant aortic regurgitation. There is no significant aortic valvular stenosi s. MITRAL VALVE The mitral valve is normal in structure and function. There is no evidence of mitral valve prolapse. There is no mitral valve stenosis. Doppler and Color Flow revealed no mitral valve regurgitation note d. TRICUSPID VALVE The tricuspid valve is normal in structure and function. Doppler and Color Flow revealed no tricuspid valve regurgitation noted. Unable to determine pulmonary artery pressure at exam time. PULMONIC VALVE Doppler and Color Flow revealed trace pulmonic valvular regurgitation. There is no pulmonic valvular stenosis. GREAT VESSELS The aortic root is normal in size. The ascending aorta is normal in size. The pulmonary artery is nor mal. The IVC is normal in size and collapses >50% with inspiration. PERICARDIAL EFFUSION There is no evidence of significant pericardial effusion. Critical Notification Critical Value: No <Conclusion> The left ventricle is normal size. The left ventricular systolic function is normal and the ejection fraction is within normal range. The Ejection Fraction is 55-60%. There is no significant aortic valvular stenosis. Doppler and Color Flow revealed no significant aortic regurgitation. Doppler and Color Flow revealed no mitral valve regurgitation noted. Doppler and Color Flow revealed no tricuspid valve regurgitation noted. Unable to determine pulmonary artery pressure at exam time. Doppler and Color Flow revealed trace pulmonic valvular regurgitation. There is no evidence of significant pericardial effusion.
== END 2016-10-25 15:00 | disposition home or self-care (01) | DRG 866 ==
LOC: ER 11:18 → 2 NORTH 13:49
PROVIDERS: ADMIT Internal Medicine Hematology & Oncology; ATTEND Internal Medicine Hematology & Oncology
DX: B34.9 Viral infection, unspecified (principal); I48.92 Unspecified atrial flutter; I10 Essential (primary) hypertension; I48.0 Paroxysmal atrial fibrillation; K21.9 Gastro-esophageal reflux disease without esophagitis; Z82.49 Family history of ischemic heart disease and other diseases of the circulatory system
CPT/HCPCS: 36415; 71020; 80048; 80053; 81001; 81025; 83690; 84132; 84484; 85007; 85027; 87086; 93005; 93306; 96361; 96374; 96375; G0481; J1885; J2270; J2405; J2765; J3010; J7030; 99285-25

== ENCOUNTER 2019-01-25 10:54 | Emergency (ER) | payer SELFPAY ==
[~2019-01-25] VITALS: Ht 172.7 cm; Wt 83.9 kg
[~2019-01-25 10:54] MED LIST: ASPI1TAB31 PO; IBUP-1027 PO; MORP10SO PO
--- NOTE | 2019-01-25 11:28 | PHYS DOC ---
Past Medical History Past Medical History: No Pertinent History, Migraines (GIBRAN RINCON APRN) Past Surgical History: Other Additional Past Surgical Histo: D&C, CYST REMOVAL, HERNIA (GIBRAN RINCON APRN) Alcohol Use: Rarely Drug Use: None (GIBRAN RINCON APRN) Adult General Chief Complaint Chief Complaint: PELVIC PAIN HPI HPI Patient is a 38 year old female who presents with vaginal discharge and pelvic pain. symptoms started 3-4 days ago. Bloody discharge and foul smell last night. she is concerned she is . Feeling nausea and breast tenderness. LMP Jan 04. regular cycles. home test is negative She is resting in no distress, no fevers. + for mild dysuria (GIBRAN RINCON APRN) Review of Systems Review of Systems Constitutional: Denies fever or chills [] Eyes: Denies change in visual acuity, redness, or eye pain [] HENT: Denies nasal congestion or sore throat [] Respiratory: Denies cough or shortness of breath [] Cardiovascular: No additional information not addressed in HPI [] GI: Denies vomiting, bloody stools or diarrhea []c/o pelvic cramping and nausea : c/o dysuria, vaginal spotting and foul smell Musculoskeletal: Denies back pain or joint pain [] Integument: Denies rash or skin lesions [] Neurologic: Denies headache, focal weakness or sensory changes [] Endocrine: Denies polyuria or polydipsia [] All other systems were reviewed and found to be within normal limits, except as documented in this note. (GIBRAN RINCON APRN) Current Medications Current Medications Current Medications Medications (Trade) Dose Ordered Sig/Myla Start Time Stop Time Status Last Admin Dose Admin Azithromycin (Zithromax) 1,000 mg 1X ONCE 01/25/19 12:15 01/25/19 12:16 DC 01/25/19 12:19 1,000 MG Ceftriaxone Sodium (Rocephin Im) 250 mg 1X ONCE 01/25/19 12:15 01/25/19 12:16 DC 01/25/19 12:19 250 MG (MERCEDES REESE MD) Allergies Allergies Allergies Coded Allergies Type Severity Reaction Last Updated Verified No Known Drug Allergies 08/14/13 No (MERCEDES REESE MD) Physical Exam Physical Exam Constitutional: Well developed, well nourished, no acute distress, non-toxic appearance. [] HENT: Normocephalic, atraumatic, bilateral external ears normal, oropharynx moist, no oral exudates, nose normal. [] Eyes: PERRLA, EOMI, conjunctiva normal, no discharge. [] Neck: Normal range of motion, no tenderness, supple, no stridor. [] Cardiovascular:Heart rate regular rhythm, no murmur [] Lungs & Thorax: Bilateral breath sounds clear to auscultation [] Abdomen: Bowel sounds normal, soft, no masses, no pulsatile masses. [] c/o mild TTP of the suprapubic region, no guarding or rebound : normal external exam, speculum exam moderate white discharge, cervix os with no redness, no active discharge, no bleeding, negative CMT Skin: Warm, dry, no erythema, no rash. [] Back: No tenderness, no CVA tenderness. [] Extremities: No tenderness, no cyanosis, no clubbing, ROM intact, no edema. [] Neurologic: Alert and oriented X 3, normal motor function, normal sensory function, no focal deficits noted. [] Psychologic: Affect normal, judgement normal, mood normal. [] (GIBRAN RINCON APRN) Current Patient Data Vital Signs Vital Signs Date Time Temp Pulse Resp B/P (MAP) Pulse Ox O2 Delivery O2 Flow Rate FiO2 01/25/19 11:30 98.6 75 16 147/90 (109) 99 Room Air 98.6 (MERCEDES REESE MD) Lab Values Laboratory Tests Test 01/25/19 11:15 01/25/19 11:17 POC Urine HCG, Qualitative Hcg negative (Negative) Urine Collection Type Unknown Urine Color Yellow Urine Clarity Cloudy Urine pH 7.5 Urine Specific [place] 1.025 Urine Protein Negative mg/dL (NEG-TRACE) Urine Glucose (UA) Negative mg/dL (NEG) Urine Ketones (Stick) Negative mg/dL (NEG) Urine Blood Negative (NEG) Urine Nitrite Positive (NEG) Urine Bilirubin Negative (NEG) Urine Urobilinogen Dipstick 1.0 mg/dL (0.2 mg/dL) Urine Leukocyte Esterase Moderate (NEG) Urine RBC Occ /HPF (0-2) Urine WBC >40 /HPF (0-4) Urine Squamous Epithelial Cells Few /LPF Urine Bacteria Many /HPF (0-FEW) Microbiology 01/25/19 Wet Prep - Final, Complete (MERCEDES REESE MD) Lab Values WET PREP Final YEAST NONE SEEN TRICHOMONAS NONE SEEN CLUE CELLS CLUE CELLS PRESENT ALTERED KRISTINA ALTERED KRISTINA PRESENT SUGGESTIVE OF BACTERIAL VAGINOSIS WBCS FEW SQUAMOUS EPS MANY (GIBRAN RINCON APRN) EKG EKG [] (GIBRAN RINCON APRN) Radiology/Procedures Radiology/Procedures [] (GIBRAN RINCON APRN) Impressions: UTI, BV (GIBRAN RINCON APRN) Course & Med Decision Making Course & Med Decision Making Pertinent Labs and Imaging studies reviewed. (See chart for details) []VSS, patient appears well mild pelvic cramping with foul discharge, nausea, concerns of Will obtain UA and HCG Pelvic exam and swabs STD treatment, pending culture UA with infection, Keflex NEG HCG, she has concerns of , has not missed a cycle, educated on home care and further home pergnancy testing if she misses her next cycle [id number] wet prep + BV Will treat with Flagyl Keflex for UTI, pending culture Stable for home care OBGYN at [facility], call for follow up, educated on home care fu and reasons to return to the ER (GIBRAN RINCON APRN) Course & Med Decision Making Staff Physician Addendum: I was working in the ER during the course of this patient's visit. I was available for consultation as needed, but I was not directly involved in the care of this patient. (MERCEDES REESE MD) Dragon Disclaimer Dragon Disclaimer This electronic medical record was generated, in whole or in part, using a voice recognition dictation system. (GIBRAN RINCON APRN) Departure Departure Impression: Primary Impression: UTI (urinary tract infection) Additional Impression: Bacterial vaginosis Disposition: HOME, SELF-CARE Condition: STABLE Referrals: NO PCP (PCP) SIN WADDELL Jr, MD Patient Instructions: Bacterial Vaginosis, Urinary Tract Infection Additional Instructions: Urine positive for infection Vaginal swab, + bacterial vaginosis Take the medications as prescribed You were treated for STD, pending culture Call your OBGYN for follow up, home test in 1 week, return for any concerns or worsening symptoms Scripts Cephalexin (KEFLEX) 500 Mg Capsule 1 CAP PO BID for 7 Days, #14 CAP Prov: GIBRAN RINCON APRN 01/25/19 Metronidazole (FLAGYL) 500 Mg Tablet 1 TAB PO BID for 7 Days, #14 TAB Prov: GIBRAN RINCON APRN 01/25/19 Problem Qualifiers GIBRAN RINCON APRN Jan 25, 2019 11:27 MERCEDES REESE MD Jan 26, 2019 08:10
[2019-01-25 11:30] VITALS: BP 147/90
[2019-01-25 11:36] LABS: BILIRUBIN,URINE NEGATIVE (NEG); COLOR,URINE YELLOW; NITRITE,URINE POSITIVE (NEG); PH,URINE 7.5; PROTEIN,URINE NEGATIVE (NEG-TRACE)
[2019-01-25 11:42] LABS: BACTERIA,URINE MANY /HPF (0-FEW); CLARITY,URINE CLOUDY; SQUAMOUS EPITHELIAL CELL,UR FEW /LPF; WBC,URINE >40 /HPF (0-4)
[2019-01-25 11:43] LABS: RBC,URINE OCC /HPF (0-2)
[2019-01-25] MEDS ORDERED: AZITHROMYCIN 250 MG TABLET. PO ONE (12:15)
[2019-01-25] MEDS ORDERED: cefTRIAXone IM 250 MG VIAL IM ONE (12:15)
[2019-01-25] MEDS ORDERED: CEPH-264 PO (12:35)
[2019-01-25] MEDS ORDERED: METR500T PO (12:35)
[2019-01-26 17:09] LABS: GC PROBE Negative (Negative)
== END 2019-01-25 12:42 | disposition home or self-care (01) ==
LOC: ER 10:54
DX: N39.0 Urinary tract infection, site not specified (principal); N76.0 Acute vaginitis; B96.89 Other specified bacterial agents as the cause of diseases classified elsewhere; G43.909 Migraine, unspecified, not intractable, without status migrainosus
CPT/HCPCS: 81001; 81025; 87086; 87491; 87591; 96372; 99284; J0696; Q0111; Q0144; 87186